=== PATIENT | female | born 1955 | race Caucasian/White ===

== ENCOUNTER 2017-03-21 13:34 | Emergency (ER) | payer OTHER ==
[~2017-03-21] VITALS: Ht 165.1 cm; Wt 80.0 kg
[~2017-03-21 13:34] MED LIST: OMEP20TA39 PO; PROM1SUP12 PR; PROM25TA5 PO
[2017-03-21 13:43] VITALS: BP 151/72; PULSE 66; RESP 24; TEMP 97.4; O2SAT 98
== END 2017-03-21 15:50 | disposition left against medical advice (07) ==
LOC: NED 13:34
DX: Z00.00 Encounter for general adult medical examination without abnormal findings (principal); Z53.21 Procedure and treatment not carried out due to patient leaving prior to being seen by health care provider
CPT/HCPCS: 99281